=== PATIENT | male | born 1945 | race American Indian/Alaskan Native ===

== ENCOUNTER 2020-07-14 18:45 | Emergency (ER) | payer MEDICARE ==
[2020-07-14 18:54] VITALS: BP 166/91
[2020-07-14] MEDS ORDERED: ACETAMINOPHEN 500 MG TAB PO ONE (19:22)
[2020-07-14] MEDS ORDERED: IBUPROFEN 600 MG TAB PO ONE (19:22)
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
== END 2020-07-14 22:46 | disposition home or self-care (01) ==
LOC: ED 18:45
DX: S93.402A Sprain of unspecified ligament of left ankle, initial encounter (principal); S96.912A Strain of unspecified muscle and tendon at ankle and foot level, left foot, initial encounter; I10 Essential (primary) hypertension; E11.9 Type 2 diabetes mellitus without complications; F17.200 Nicotine dependence, unspecified, uncomplicated; Z90.49 Acquired absence of other specified parts of digestive tract; Z88.2 Allergy status to sulfonamides; Z79.899 Other long term (current) drug therapy; V49.59XA Passenger injured in collision with other motor vehicles in traffic accident, initial encounter; Y92.410 Unspecified street and highway as the place of occurrence of the external cause; Y93.89 Activity, other specified; Y99.8 Other external cause status